=== PATIENT | female | born 2000 | race Caucasian/White ===

== ENCOUNTER 2021-03-01 21:30 | Emergency (ER) | payer BC ==
[~2021-03-01] VITALS: Ht 172.7 cm; Wt 63.6 kg
[2021-03-01 21:31] VITALS: TEMP 98.6
[2021-03-01 22:25] VITALS: BP 112/72; PULSE 113
== END 2021-03-01 22:25 | disposition home or self-care (01) ==
LOC: COL.ER 21:30
DX: F41.9 Anxiety disorder, unspecified (principal)